=== PATIENT | female | born 1985 | race Caucasian/White ===

== ENCOUNTER 2022-07-02 01:23 | Day surgery (SDC) | payer OTHER, SELFPAY ==
[2022-06-24 16:33] VITALS: BMI 31.8
--- NOTE | 2022-06-24 16:46 | PC.NURSE ---
Report to the Outpatient Waiting Room, entrance under the green pavilion located off [facility], at time _1215 on date 07/02/22. OR Time: _1415_. - You and your visitor will be asked a series of questions to screen for COVID 19 for your protection. - Only one visitor is allowed at this time. - The patient visitor is requested to leave or wait in car when not with patient. - A mask is required within the hospital. Patients may have clear liquids (water, carbonated beverages, clear teas, apple juice) until 3 hours prior to surgery with a maximum of 20 ounces. - No food from midnight until time of surgery - Infants may have breast milk until 4 hours before surgery, infant formula 6 hours prior to surgery. - Children will be allowed to drink immediately following surgery. If applicable, please bring a bottle or sippy cup to assist with drinking. Juice, water, soda, and popsicles are readily available. For infants on formula, please bring formula the day of surgery. Pacifiers are allowed. Take the following medications with a SIP of water the morning of surgery: n/a Medications to discontinue per physician Date to take last dose Please no make-up, nail azeri, hairspray, perfume, deodorant, or body powder the day of surgery. No jewelry (including any body piercings) or valuables the day of surgery, leave them at home. Please take a shower or bath the night before, or the morning of, surgery with an antibacterial soap. Wear comfortable, loose fitting clothing. Children are encouraged to wear pajamas. - Jewelry must be removed prior to entering the operating room. Rings and piercings that are not removed may be cut off. - The hospital will not accept responsibility for valuables. - Please leave all valuables, including medications, at home the day of surgery. If you are going home after surgery, a licensed cdl team truck driver must drive you home. - NO public transportation without another adult. - We recommend that an adult stay with you for 24 hours following discharge. - We also recommend that you do not drive, make important decision, drink alcoholic beverages, or take any drugs that were not prescribed by your health care provider for at least 24 hours after your discharge time. For Pediatric surgeries, we recommend two adults accompany the child home (only one inside the building at this time). Follow any additional instructions given to you from your surgeon. If you or anyone in your household have experienced Covid symptoms in the past week, please notify your surgeon or the nurse liaison at the phone number below for possible testing. Telephone instructions given to Barry Cooley and asked if any additional questions and then verbalized understanding. Patient advised to call surgeon office or pre surgery nurse liaison [phone] if any additional questions.
--- NOTE | 2022-07-02 10:59 | PM.IMHP ---
H&P: HPI History of Present Illness Date/Time: 07/02/22 10:59 37-year-old female presents for evaluation of heavy vaginal bleeding. She was doing well until approximately 3-4 months ago when began have heavy bleeding cramping clots was initiated on control pills which did not help. Ultrasound revealed no significant abnormalities an endometrial lining of 9mm. Ultimately desires ablation but due to insurance needs to have tissue sampling performed prior to ablation being performed. Chief Complaint: Menometrorrhagia PMFSH Past Medical History Medical History Anxiety and depression Hypertension Surgical History Surgical History Delivery by section (~2004) History of (07/26/05) primary c/s Family History Family History Grandparent Diabetes mellitus maternal grandfather Pulmonary embolism paternal grandfather Carcinoma of colon maternal grandfather Father Cerebrovascular accident Father Cerebrovascular accident Grandparent Diabetes mellitus maternal grandfather Pulmonary air embolism paternal grandfather legs and lungs Social History Social History Years smoked: 20 Smoking status: Former smoker Tobacco type: cigarettes Smoking end date: 08/30/21 Alcohol intake: never Substance use: never Substance use type: does not use Living arrangements: with family Additional living arrangements comments: 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 Gender identity (if verbalized by the patient): Female Sexual Orientation (if Verbalized by the Patient): Straight or Heterosexual Spiritual care concerns: No Meds Home Medications and Allergies Home Medications Medication Instructions Recorded Confirmed Type galcanezumab-gnlm 120 mg/mL 120 mg subcut MONTHLY 05/14/22 06/24/22 History subcutaneous pen injector (Emgality Pen) metoprolol tartrate 50 mg tablet 50 mg PO DAILY 05/14/22 06/24/22 History Allergies Allergy/AdvReac Type Severity Reaction Status Date / Time hydrocodone Allergy Mild HIVES Unverified 05/14/22 14:56 Exam Const: General: cooperative, healthy appearing and comfortable Resp: Effort & Inspection: normal respiratory effort Auscultation: clear to auscultation bilaterally Cardio: Rate: regular rate Rhythm: regular rhythm GI: Inspection: normal to inspection and scar Auscultation: normal bowel sounds : External Female Exam: normal external appearance Speculum Exam - Vagina: normal appearance of the vagina Speculum Exam - Cervix: normal appearance of the cervix Bimanual exam- vagina & uterus: enlarged ( 8-10 week size) Bimanual Exam- Adnexa, other: normal adnexae Assessment and Plan Assessment and plan (1) Menometrorrhagia: Code(s): N92.1 - Excessive and frequent menstruation with irregular cycle Status: Acute Assessment and Plan: hysteroscopy with uterine curettings
--- NOTE | 2022-07-02 11:01 | WPDHPUPDATE1 ---
History and Physical Update Update Date/Time: 07/02/22 11:01 History and Physical has been reviewed, including an updated exam of the patient. There are NO changes in the patient's condition. Risks, benefits, and alternatives have been discussed and questions answered. Patient agrees to proceed with procedure.
[2022-07-02 12:12] VITALS: BP 128/85; PULSE 72; RESP 18; TEMP 36.4; O2SAT 100
--- NOTE | 2022-07-02 12:18 | WPDANESEPPF ---
Anes - Initial Pre Proc Eval Procedure: Operation Date: 07/02/22 14:15 Proposed Procedures p Hysteroscopy, Dilation and Curettage - Keven Vela MD Date/Time: 07/02/22 12:18 Surgeon: Keven Vela MD Pre Op Diagnosis: menometrorrhagia Patient Data Age: 37 Gender: F Height: 1.73 m Weight: 95.9 kg Last Vital Signs Temp 97.6 F 07/02/22 12:12 Pulse 72 07/02/22 12:12 Resp 18 07/02/22 12:12 BP 128/85 07/02/22 12:12 Pulse Ox 100 07/02/22 12:12 O2 Del Method Room Air 07/02/22 12:12 Allergies Allergy/AdvReac Type Severity Reaction Status Date / Time hydrocodone Allergy Mild HIVES Unverified 05/14/22 14:56 Home Medications Medication Instructions Recorded Confirmed Type galcanezumab-gnlm 120 mg/mL 120 mg subcut MONTHLY 05/14/22 06/24/22 History subcutaneous pen injector (Emgality Pen) metoprolol tartrate 50 mg tablet 50 mg PO DAILY 05/14/22 06/24/22 History Patient hx anesthesia problems: none Family hx anesthesia problems: none Results Review: All pre-operative results and documents have been reviewed as part of the pre-operative evaluation. [facility] Past Medical History Medical History Anxiety and depression Hypertension Surgical History Surgical History Delivery by section (~2004) History of (07/26/05) primary c/s Family History Family History Grandparent Diabetes mellitus maternal grandfather Pulmonary embolism paternal grandfather Carcinoma of colon maternal grandfather Father Cerebrovascular accident Father Cerebrovascular accident Grandparent Diabetes mellitus maternal grandfather Pulmonary air embolism paternal grandfather legs and lungs Social History Social History Years smoked: 20 Smoking status: Former smoker Tobacco type: cigarettes Smoking end date: 08/30/21 Alcohol intake: never Substance use: never Substance use type: does not use Living arrangements: with family Additional living arrangements comments: 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 Gender identity (if verbalized by the patient): Female Sexual Orientation (if Verbalized by the Patient): Straight or Heterosexual Spiritual care concerns: No Anes - Eval Final PreProcedure Day of Procedure 07/02/22 12:18 Patient weight: obese Heart: regular rate and rhythm Lungs: clear to auscultation Airway: Mallampati scale class II Neurological: alert and oriented Last oral intake: >/= 8 hours ASA classification: II Emergent: no Anesthetic plan: proceed Anesthesia type and monitoring: general GIVS and standard monitoring Results Review: All pre-operative results and documents have been reviewed as part of the pre-operative evaluation. Informed Consent: The patient's anesthetic plan and its attendant risks and benefits were discussed with the patient/family/POA. Questions were solicited and answers provided to the satisfaction of the patient/family/POA.
[2022-07-02] MEDS: ACETAMINOPHEN 500 MG TABLET 1000 MG PO (12:22)
[2022-07-02] MEDS: LACTATED RINGERS 1,000 ML 30 ML IV CONT (12:30)
[2022-07-02 12:50] VITALS: BP 128/85; PULSE 72; RESP 18; TEMP 36.4; O2SAT 100
--- NOTE | 2022-07-02 13:44 | P.OP_ITS ---
Procedure Note - Detailed Date of Procedure 07/02/22 Pre-op Diagnosis menometrorrhagia Post-op Diagnosis Same Procedure Performed Hysteroscopy with uterine curettings Surgeon Keven Vela MD Anesthesia MAC Findings Slightly thickened endometrial cavity, no polyps or fibroids noted. Description of Procedure Patient prepped and draped in usual manner for this procedure. Cervix dilated to allow the hysteroscope to be placed which revealed no significant abn ormalities. Curettings were obtained with tissue sent for pathologic diagnosis. There was no significant bleeding patient was sent to recovery room in stable condition. Estimated Blood Loss 25 Drains No Packing No Pathology Yes Complications No immediate complications Condition Stable Disposition PACU [facility] Billing Surgery - Charge Forward: Surgery Billing
[2022-07-02 13:50] VITALS: BP 111/79; PULSE 68; RESP 12; O2SAT 98
[2022-07-02 14:35] VITALS: BP 129/85; PULSE 66; RESP 16
== END 2022-07-02 14:50 | disposition home or self-care (01) ==
PROVIDERS: Visit Provider Obstetrics & Gynecology
PROC: 0U5B8ZZ Destruction of Endometrium, Via Natural or Artificial Opening Endoscopic (ICD-10-PCS; CPT 58563; principal; 2022-07-02 14:15)
DX: N92.1 Excessive and frequent menstruation with irregular cycle (principal); I10 Essential (primary) hypertension; F41.8 Other specified anxiety disorders; Z87.891 Personal history of nicotine dependence; E66.9 Obesity, unspecified; Z68.32 Body mass index [BMI] 32.0-32.9, adult
CPT/HCPCS: 58558; 88305; A9270; J2250; J2704; J3010; J7120

== ENCOUNTER 2022-07-18 00:31 | Day surgery (SDC) | payer OTHER, SELFPAY ==
[2022-07-14 13:43] VITALS: BMI 31.8
--- NOTE | 2022-07-14 14:13 | PC.NURSE ---
Report to the Outpatient Waiting Room, entrance under the green pavilion located off [facility], at time _1130 on date _07/18/22__. OR Time: _1330 . YOU WILL BE NOTIFIED ON 07/17/22 IF YOUR SURGERY TIME IS ADJUSTED - You and your visitor will be asked to self-screen and do not enter if you have any COVID symptoms. - Only one visitor and NO children visitors are allowed at this time. - The patient visitor is requested to leave or wait in car when not with patient due to restrictions. - A mask is required within the hospital. Patients may have clear liquids (water, carbonated beverages, clear teas, apple juice) until 3 hours prior to surgery with a maximum of 20 ounces. - No food from midnight until time of surgery - Take the following medications with a SIP of water the morning of surgery: ___METOPROLOL (FOR MIGRAINES) Medications to discontinue per physician N/A Date to take last dose Please no make-up, nail persian, hairspray, perfume, deodorant, or body powder the day of surgery. No jewelry (including any body piercings) or valuables the day of surgery, leave them at home. Please take a shower or bath the night before, or the morning of, surgery with an antibacterial soap. Wear comfortable, loose fitting clothing. - Jewelry must be removed prior to entering the operating room. Rings and piercings that are not removed may be cut off. - The hospital will not accept responsibility for valuables. - Please leave all valuables, including medications, at home the day of surgery. If you are going home after surgery, a licensed equipment driver must drive you home. - NO public transportation without another adult. - We recommend that an adult stay with you for 24 hours following discharge. - We also recommend that you do not drive, make important decision, drink alcoholic beverages, or take any drugs that were not prescribed by your health care provider for at least 24 hours after your discharge time. Follow any additional instructions given to you from your surgeon. If you or anyone in your household have experienced Covid symptoms in the past week, please notify your surgeon or the nurse liaison at the phone number below for possible testing. Telephone instructions given to __HOLLIE_and asked if any additional questions and then verbalized understanding. Patient advised to call surgeon office or pre surgery nurse liaison [phone] if any additional questions.
[2022-07-18] VITALS (9 sets, daily range): BP systolic 93–160; BP diastolic 54–88; PULSE 59–84; RESP 10–18; TEMP 36.6–36.7; O2SAT 98–100
--- NOTE | 2022-07-18 09:25 | WPDHPUPDATE1 ---
History and Physical Update Update Date/Time: 07/18/22 09:25 37-year-old female presents for treatment of heavy irregular vaginal bleeding and also permanent sterilization. She was present 2 weeks ago with hysteroscopy D&C which showed normal cavity and no endometrial abnormalities on pathology. There for presents today for definitive therapy of both of the above. we have discussed the permanence failure rate increased risk of ectopic and regret from the salpingectomy and she states good understanding and desires to proceed. Plan today: 1. Hysteroscopy with endometrial ablation. No curettings will need to be obtained today 2. Laparoscopic bilateral salpingectomy History and Physical has been reviewed, including an updated exam of the patient. There are NO changes in the patient's condition. Risks, benefits, and alternatives have been discussed and questions answered. Patient agrees to proceed with procedure.
--- NOTE | 2022-07-18 12:40 | P.PNAN_ITS ---
Anes - Initial Pre Proc Eval Procedure: Operation Date: 07/18/22 13:30 Proposed Procedures p Hysteroscopy, Juanita Endometrial Ablation, Bilateral Laparoscopic Salpingectomy - Keven Vela MD Date/Time: 07/18/22 12:40 Surgeon: Keven Vela MD Pre Op Diagnosis: Menometrorrhagia, Desire Sterilization Patient Data Age: 37 Gender: F Height: 1.73 m Weight: 95 kg Allergies Allergy/AdvReac Type Severity Reaction Status Date / Time hydrocodone Allergy Mild HIVES Verified 07/02/22 12:25 Home Medications Medication Instructions Recorded Confirmed Type galcanezumab-gnlm 120 mg/mL 120 mg subcut MONTHLY 05/14/22 07/14/22 History subcutaneous pen injector (Emgality Pen) metoprolol tartrate 50 mg tablet 50 mg PO DAILY 05/14/22 07/14/22 History ibuprofen 800 mg tablet 800 mg PO TID PRN pain #20 tabs 07/02/22 07/14/22 Rx Patient hx anesthesia problems: none Family hx anesthesia problems: none Results Review: All pre-operative results and documents have been reviewed as part of the pre- operative evaluation. [facility] Past Medical History Medical History (Updated 07/18/22 @ 12:40 by Lamont Ham MD) Anxiety and depression Hypertension Obesity Surgical History Surgical History Delivery by section (~2004) History of (07/26/05) primary c/s Family History Family History Grandparent Diabetes mellitus maternal grandfather Pulmonary embolism paternal grandfather Carcinoma of colon maternal grandfather Father Cerebrovascular accident Father Cerebrovascular accident Grandparent Diabetes mellitus maternal grandfather Pulmonary air embolism paternal grandfather legs and lungs Social History Social History Years smoked: 2 Smoking status: Former smoker Tobacco type: cigarettes Smoking end date: 08/30/21 Alcohol intake: never Substance use: never Substance use type: does not use Living arrangements: with family Additional living arrangements comments: 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 Gender identity (if verbalized by the patient): Female Sexual Orientation (if Verbalized by the Patient): Straight or Heterosexual Spiritual care concerns: No Anes - Eval Final PreProcedure Day of Procedure 07/18/22 12:40 Patient weight: obese Heart: regular rate and rhythm Lungs: clear to auscultation Airway: Mallampati scale class II Neurological: alert and oriented Last oral intake: >/= 8 hours ASA classification: II Emergent: no Anesthesia type and monitoring: general ETT and standard monitoring Results Review: All pre-operative results and documents have been reviewed as part of the pre- operative evaluation. Informed Consent: The patient's anesthetic plan and its attendant risks and benefits were discussed with the patient/family/POA. Questions were solicited and answers provided to the satisfaction of the patient/family/POA.
[2022-07-18] MEDS: ACETAMINOPHEN 500 MG TABLET 1000 MG PO (12:46)
[2022-07-18] MEDS: KETOROLAC 15 MG/ML VIAL (*BKC) IV PUSH (12:46)
[2022-07-18] MEDS: LACTATED RINGERS 1,000 ML 30 ML IV CONT (12:58)
[2022-07-18] MEDS: ceFAZolin 2 GM/D5W 50 ML 2 GM/50 ML BAG IVPB (13:33)
--- NOTE | 2022-07-18 14:21 | P.OP_ITS ---
Procedure Note - Detailed Date of Procedure 07/18/22 Pre-op Diagnosis Menometrorrhagia, Desire Sterilization Post-op Diagnosis Same ( Plus adhesions) Procedure Performed 1. Hysteroscopic endometrial ablation 2. Laparoscopic bilateral salpingectomy 3. Laparoscopic lysis of adhesions Surgeon Keven Vela MD Anesthesia General Findings laparoscopic evaluation revealed no abnormalities other than omental adhesions to the anterior abdominal wall. Description of Procedure Patient prepped in usual manner for this procedure. Cervical instruments placed for uterine mobility and attention was placed to the abdomen. Periumbilical and right and left lower quadrant incisions were made under direct visualization. Upon entry of the camera adhesions were noted to the anterior abdominal wall which were taken down with the harmonic scalp. Once this was do ne mesial salpinx was cauterized and cut bilaterally the tubes were removed without difficulty. There was no bleeding, gas was allowed to escape and incisions were approximated using 4-0 Monocryl. Hysteroscope was then placed with evaluation of the cavity. Endometrial ablation instrument was placed cavity assessment performed and the instrument was activated. At the end of the procedure hysteroscopic exam revealed no abnormalities and good destruction throughout. Patient are procedure well and was sent to recovery room in stable condition. Estimated Blood Loss 10 Drains No Packing No Pathology Yes Complications No immediate complications Condition Stable Disposition PACU [facility] Billing Surgery - Charge Forward: Surgery Billing
[2022-07-18] MEDS: oxyCODONE HCL (*CRX) 5 MG TAB IR PO (15:13)
== END 2022-07-18 16:30 | disposition home or self-care (01) ==
PROVIDERS: Visit Provider Obstetrics & Gynecology
PROC: 0UDB8ZZ Extraction of Endometrium, Via Natural or Artificial Opening Endoscopic (ICD-10-PCS; CPT 58558; principal; 2022-07-18 13:30)
DX: N92.1 Excessive and frequent menstruation with irregular cycle (principal); Z30.2 Encounter for sterilization; I10 Essential (primary) hypertension; F41.8 Other specified anxiety disorders; E66.9 Obesity, unspecified; Z68.31 Body mass index [BMI] 31.0-31.9, adult; Z87.891 Personal history of nicotine dependence
CPT/HCPCS: 58563; 58661; 88302; A9270; J0330; J0690; J1100; J1885; J2704; J2710; J3010; J7120

== ENCOUNTER 2023-03-16 15:02 | Outpatient (CLI) | payer OTHER, SELFPAY ==
--- NOTE | 2023-03-16 15:30 | ECG_ITS ---
Measurements Intervals Anabel Rate: 76 P: 43 NJ: 184 QRS: 22 QRSD: 87 T: 21 QT: 403 QTc: 456 Interpretive Statements SINUS RHYTHM NORMAL ECG NO PREVIOUS ECG AVAILABLE FOR COMPARISON Electronically Signed On 03-17-2023 6:59:57 CDT by Shukri Lucero M.D.
[2023-03-16 15:52] LABS: Hematocrit 36.3 % (37.0-47.0); Mean Corpuscular HGB Conc 33.1 g/dl (32-36); Mean Corpuscular Hemoglobin 29.5 pg (26-34); Mean Corpuscular Volume 89.2 fl (80-100); Mean Platelet Volume 10.5 fl (7.4-10.4); Platelet Count Result 309 k/mm3 (150-375); Red Blood Count 4.07 M/mm3 (4.2-5.4); Red Cell Distribution Width 14.2 % (11.5-14.5); White Blood Count 6.7 K/mm3 (4.5-10.0)
== END 2023-03-16 15:03 | disposition home or self-care (01) ==
LOC: ANHSURGERY 15:07
PROVIDERS: Visit Provider Obstetrics & Gynecology
DX: Z01.818 Encounter for other preprocedural examination (principal); E78.5 Hyperlipidemia, unspecified; N99.85 Post endometrial ablation syndrome
CPT/HCPCS: 36415; 85027; 86850; 86900; 86901; 93005

== ENCOUNTER 2023-03-19 01:37 | Day surgery (SDC) | payer OTHER, SELFPAY ==
[2023-03-11 12:37] VITALS: BMI 32.6
--- NOTE | 2023-03-11 12:41 | PC.NURSE ---
Report to the Outpatient Waiting Room, entrance under the green pavilion located off [facility], at time 6:00 on date 03/19/23. Planned Procedure Time: 7:30. Time changes happen often and if your time is changed the preop area will call you the afternoon before. - You and your visitor will be asked to self-screen and do not enter if you have any COVID symptoms. - A mask is optional within the hospital at this time. Patients may have clear liquids (water, carbonated beverages, clear teas, apple juice) until 3 hours prior to surgery (4:30) with a maximum of 20 ounces. - No food from midnight until time of surgery Take the following medications with a SIP of water the morning of surgery: NONE DO NOT STOP ANY OF YOUR OTHER PRESCRIPTION MEDICATIONS PRIOR TO SURGERY?EXCEPT THE FOLLOWING Medications to discontinue per physician: N/A Date to take last dose: N/A Please no make-up, nail austrian, hairspray, perfume, deodorant, or body powder the day of surgery. No jewelry (including any body piercings) or valuables the day of surgery, leave them at home. Please take a shower or bath the night before, or the morning of, surgery with an antibacterial soap. Wear comfortable, loose fitting clothing. - Jewelry must be removed prior to entering the operating room. Rings and piercings that are not removed may be cut off. - The hospital will not accept responsibility for valuables. - Please leave all valuables, including medications, at home the day of surgery. If you are going home after surgery, a licensed [employer] driver must drive you home. - NO public transportation without another adult if you receive anesthesia. - We recommend that an adult stay with you for 24 hours following discharge. - We also recommend that you do not drive, make important decision, drink alcoholic beverages, or take any drugs that were not prescribed by your health care provider for at least 24 hours after your discharge time. Follow any additional instructions given to you from your surgeon. If you or anyone in your household have experienced Covid symptoms in the past week, please notify your surgeon or the nurse liaison at the phone number below for possible testing. Telephone instructions given to PT Satnam GAGNON and asked if any additional questions and then verbalized understanding. Patient advised to call surgeon office or pre surgery nurse liaison [phone] if any additional questions.
--- NOTE | 2023-03-18 09:07 | WPDANESEPPF ---
Anes - Initial Pre Proc Eval Procedure: Operation Date: 03/19/23 07:30 Proposed Procedures p Robotic Assisted Total Laparoscopic Hysterectomy - Keven Vela MD Date/Time: 03/18/23 09:07 Surgeon: Keven Vela MD Pre Op Diagnosis: post ablation syndrome Patient Data Age: 38 Gender: F Height: 1.73 m Weight: 97.52 kg Allergies Allergy/AdvReac Type Severity Reaction Status Date / Time hydrocodone Allergy Mild Nausea Verified 03/11/23 12:36 Home Medications Medication Instructions Recorded Confirmed Type galcanezumab-gnlm 120 mg/mL 120 mg subcut MONTHLY 05/14/22 03/11/23 History subcutaneous pen injector (Emgality Pen) metoprolol tartrate 50 mg tablet 50 mg PO HS 05/14/22 03/11/23 History atorvastatin 20 mg tablet 20 mg PO HS 03/11/23 03/11/23 History Patient hx anesthesia problems: none Family hx anesthesia problems: none Results Review: All pre-operative results and documents have been reviewed as part of the pre-operative evaluation. [facility] Past Medical History Medical History Anxiety and depression Hyperlipidemia Hypertension Obesity Surgical History Surgical History (Updated 03/18/23 @ 10:37 by Keven Vela MD) Delivery by section (~2004) History of (07/26/05) primary c/s History of endometrial ablation History of hysteroscopy (07/18/22) Hscope endometrial ablation / bilateral Lscope salpingectomy and Lysis of adhesions History of hysteroscopy (07/02/22) Hscope D&C History of tubal ligation Family History Family History Grandparent Diabetes mellitus maternal grandfather Pulmonary embolism paternal grandfather Carcinoma of colon maternal grandfather Father Cerebrovascular accident Father Cerebrovascular accident Grandparent Diabetes mellitus maternal grandfather Pulmonary air embolism paternal grandfather legs and lungs Social History Social History Years smoked: 14 Smoking status: Former smoker Tobacco type: cigarettes Smoking end date: 11/30/21 Alcohol intake: current Alcohol use details: RARE Substance use: never Substance use type: does not use Living arrangements: with family Additional living arrangements comments: Occupation/Education: occupation 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 Gender identity (if verbalized by the patient): Female Sexual Orientation (if Verbalized by the Patient): Straight or Heterosexual Spiritual care concerns: No Anes - Eval Final PreProcedure Day of Procedure 03/18/23 09:07 Patient weight: obese Heart: regular rate and rhythm Lungs: clear to auscultation Airway: Mallampati scale class II Neurological: alert and oriented Last oral intake: >/= 8 hours ASA classification: III Emergent: no Anesthetic plan: proceed Anesthesia type and monitoring: general ETT and standard monitoring Results Review: All pre-operative results and documents have been reviewed as part of the pre-operative evaluation. Informed Consent: The patient's anesthetic plan and its attendant risks and benefits were discussed with the patient/family/POA. Questions were solicited and answers provided to the satisfaction of the patient/family/POA.
--- NOTE | 2023-03-18 10:34 | PM.IMHP ---
H&P: HPI History of Present Illness Date/Time: 03/18/23 10:34 38-year-old female presents with complaints of heavy irregular vaginal bleeding and cramping. She underwent endometrial ablation approximately 6 months ago and this has had no effect on her bleeding activity, other than potentially being worse since that period of time. She has a history of delivery and at her laparoscopic tubal which was also performed with the ablation she was found to have omental adhesions but no other significant abnormalities were appreciated. Chief Complaint: Post endometrial ablation syndrome Review of Systems Review of Systems: All systems reviewed & are unremarkable except as noted in HPI and below PMFSH Past Medical History Medical History Anxiety and depression Hyperlipidemia Hypertension Obesity Surgical History Surgical History (Updated 03/18/23 @ 10:37 by Keven Vela MD) Delivery by section (~2004) History of (07/26/05) primary c/s History of endometrial ablation History of hysteroscopy (07/18/22) Hscope endometrial ablation / bilateral Lscope salpingectomy and Lysis of adhesions History of hysteroscopy (07/02/22) Hscope D&C History of tubal ligation Family History Family History Grandparent Diabetes mellitus maternal grandfather Pulmonary embolism paternal grandfather Carcinoma of colon maternal grandfather Father Cerebrovascular accident Father Cerebrovascular accident Grandparent Diabetes mellitus maternal grandfather Pulmonary air embolism paternal grandfather legs and lungs Social History Social History Years smoked: 14 Smoking status: Former smoker Tobacco type: cigarettes Smoking end date: 11/30/21 Alcohol intake: current Alcohol use details: RARE Substance use: never Substance use type: does not use Living arrangements: with family Additional living arrangements comments: Occupation/Education: occupation 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 Gender identity (if verbalized by the patient): Female Sexual Orientation (if Verbalized by the Patient): Straight or Heterosexual Spiritual care concerns: No Meds Home Medications and Allergies Home Medications Medication Instructions Recorded Confirmed Type galcanezumab-gnlm 120 mg/mL 120 mg subcut MONTHLY 05/14/22 03/11/23 History subcutaneous pen injector (Emgality Pen) metoprolol tartrate 50 mg tablet 50 mg PO HS 05/14/22 03/11/23 History atorvastatin 20 mg tablet 20 mg PO HS 03/11/23 03/11/23 History Allergies Allergy/AdvReac Type Severity Reaction Status Date / Time hydrocodone Allergy Mild Nausea Verified 03/11/23 12:36 Exam Const: General: cooperative and healthy appearing Resp: Effort & Inspection: normal respiratory effort Auscultation: clear to auscultation bilaterally Cardio: Rate: regular rate Rhythm: regular rhythm GI: Inspection: normal to inspection and incision Auscultation: normal bowel sounds : External Female Exam: normal external appearance Speculum Exam - Vagina: normal appearance of the vagina Speculum Exam - Cervix: normal appearance of the cervix Bimanual exam- vagina & uterus: enlarged ( 8-10 week size mobile) Bimanual Exam- Adnexa, other: normal adnexae Assessment and Plan Assessment and plan (1) Menometrorrhagia: Code(s): N92.1 - Excessive and frequent menstruation with irregular cycle Status: Acute (2) History of endometrial ablation: Code(s): Z98.890 - Other specified postprocedural states Status: Acute (3) History of : Onset Date: 07/26/05 Code(s): Z98.891 - History of uterine scar from previous surgery Status: Acute Plan 1. Proceed wit
[2023-03-19] VITALS (12 sets, daily range): BP systolic 103–130; BP diastolic 67–89; PULSE 49–90; RESP 12–18; TEMP 36.3–36.8; O2SAT 95–100
[2023-03-19] MEDS: ACETAMINOPHEN 500 MG TABLET 1000 MG PO ×2 (07:00→19:26)
[2023-03-19] MEDS: LACTATED RINGERS 1,000 ML 30 ML IV CONT (07:00)
[2023-03-19] MEDS: KETOROLAC 15 MG/ML VIAL (*BKC) IV PUSH (07:00)
--- NOTE | 2023-03-19 07:04 | WPDHPUPDATE1 ---
History and Physical Update Update Date/Time: 03/19/23 07:04 History and Physical has been reviewed, including an updated exam of the patient. There are NO changes in the patient's condition. Risks, benefits, and alternatives have been discussed and questions answered. Patient agrees to proceed with procedure.
[2023-03-19] MEDS: ceFAZolin 2 GM/D5W 50 ML 2 GM/50 ML BAG IVPB (07:29)
--- NOTE | 2023-03-19 08:32 | W.PM.PROC2 ---
Procedure Note - Detailed Date of Procedure 03/19/23 Pre-op Diagnosis post ablation syndrome Post-op Diagnosis Same Procedure Performed Robotic assisted total laparoscopic hysterectomy Surgeon Keven Vela MD Anesthesia General Findings Enlarged globular uterus with no specific abnormalities noted. Ovaries bilaterally without abnormality Fallopian tubes surgically absent bilateral Description of Procedure Patient prepped and draped usual manner for this procedure. Abdominal trocar sites were marked and placed under direct visualization. The cervical instruments were placed prior to the abdominal portion procedure. The trocars were attached to the de Mayra system and instruments were placed under direct visualization. Surgeon moved to the console and inspection reveals findings as above. Bilaterally the round ligament cauterized and cut and the bladder flap was developed without difficulty posterior leaf the broad ligament was also incised. Utero-ovarian ligament was cauterized and cut to release the ovary from the uterus. Uterine vessels were then skeletonized cauterized and cut and the anterior colpotomy incision was then made. This was carried circumferentially to release the cervix from the vagina. Uterus was then delivered into the uterus without difficulty. Vaginal cuff closed using V lock suture from the right angle to the midline and left angle midline with good approximation hemostasis noted. Irrigation was undertaken and there was no bleeding. Shara was placed empirically over all the surgical sites. Gas was allowed to escape still there was no bleeding. Trocars removed and incisions were approximated using 4-0 Monocryl prior to the patient be sent to recovery room in stable condition. Estimated Blood Loss 50 Drains No Packing No Pathology Yes Complications No immediate complications Condition Stable Disposition PACU [facility] Billing Surgery - Charge Forward: Surgery Billing
[2023-03-19] MEDS: fentaNYL CITRATE INJ (*CRX) 100 MCG/2 ML VIAL 25 MCG IV PUSH ×3 (09:10→09:16)
--- NOTE | 2023-03-19 10:39 | PC.NURSE ---
This patient, Barry Cooley, was received from PACU via bed on 03/19/23 at 0950. Patient/family oriented to unit policies and routines.
[2023-03-19] MEDS: DEXTROSE 5%/0.45% SOD CHL 1,000 ML 125 ML IV CONT (11:09)
[2023-03-19] MEDS: traMADol HCL (*CRX) 50 MG TABLET PO (11:14)
[2023-03-19] MEDS: KETOROLAC 30 MG/ML VIAL (*BKC) IV PUSH (12:09)
[2023-03-19] MEDS: IBUPROFEN 600 MG TABLET PO (17:56)
[2023-03-19] MEDS: METOPROLOL TARTRATE 50 MG TAB PO (21:06)
[2023-03-19] MEDS: ATORVASTATIN 20 MG TABLET PO (21:06)
--- NOTE | 2023-03-19 22:09 | PC.NURSE ---
Patient states that tylenol helped very little with her headache. States that the pain went from a 7/10 to a 6/10 but states that it is hard to rate because she always has a headache. RN stated that she will call the physician senior litigation paralegal and get something stronger ordered for her headache. Patient states that she does not want RN to call and get a new order because nothing will help anyway. RN verified if patient was sure about not getting any stronger medication and patient confirmed that she didn't want it. RN instructed patient that if headache increases in severity to let her know so she can call physician senior litigation paralegal.
[2023-03-20 04:30] VITALS: BP 122/93; PULSE 78; RESP 16; TEMP 36.4
[2023-03-20] MEDS: IBUPROFEN 600 MG TABLET PO (04:35)
[2023-03-20] MEDS: ACETAMINOPHEN 325 MG TABLET 650 MG (04:35)
[2023-03-20 05:55] LABS: Basophils Percent Auto 0.1 % (0.2-1.2); Eosinophils Percent Auto 0.3 % (0-4.4); Hematocrit 34.4 % (37.0-47.0); Hemoglobin 11.2 g/dL (12.0-15.0); Immature Granulocyte Absolute 0.03 K/mm3 (0.00-0.031); Immature Granulocyte Percent A 0.3 % (0-0.5); Lymphocytes Absolute Auto 1.86 K/mm3 (0.9-3.2); Lymphocytes Percent Auto 17.5 % (18.3-44.2); Mean Corpuscular HGB Conc 32.6 g/dl (32-36); Mean Corpuscular Hemoglobin 28.8 pg (26-34); Mean Corpuscular Volume 88.4 fl (80-100); Mean Platelet Volume 11.4 fl (7.4-10.4); Monocytes Absolute Auto 0.6 K/mm3 (0.1-0.6); Monocytes Percent Auto 5.5 % (2.6-8.5); Neutrophils Absolute Auto 8.1 K/mm3 (1.3-6.7); Neutrophils Percent Auto 76.3 % (45.5-73.1); Platelet Count Result 281 k/mm3 (150-375); Red Blood Count 3.89 M/mm3 (4.2-5.4); Red Cell Distribution Width 14.4 % (11.5-14.5); White Blood Count 10.6 K/mm3 (4.5-10.0)
[2023-03-20 08:45] VITALS: BP 117/70; PULSE 71; RESP 18; TEMP 36.5; O2SAT 97
--- NOTE | 2023-03-20 10:10 | WPDANESPN ---
Anes - Prog Note Post-Op Date/Time: 03/20/23 10:10 Cardiovascular status: normal Respiratory status: normal Airway patency: baseline Mental status: baseline Post-Op hydration status: normal Vital Signs: Last Vital Signs Temp 36.5 C 03/20/23 08:45 Pulse 71 03/20/23 08:45 Resp 18 03/20/23 08:45 BP 117/70 03/20/23 08:45 Pulse Ox 97 03/20/23 08:45 O2 Del Method Room Air 03/19/23 09:41 O2 Flow Rate 1 03/19/23 09:30 Pain Score (VAS): 12/09 I/O: Intake & Output 03/19/23 03/20/23 03/20/23 23:59 07:59 15:59 Intake Total 400 250 Output Total 200 Balance 200 250 Laboratory Tests 03/20/23 04:32 03/20/23 04:32 WBC 10.6 H RBC 3.89 L Hgb 11.2 L Hct 34.4 L MCV 88.4 MCH 28.8 MCHC 32.6 RDW 14.4 Plt Count 281 MPV 11.4 H Immature Gran % (Auto) 0.3 Neut % (Auto) 76.3 H Lymph % (Auto) 17.5 L [place] % (Auto) 5.5 Eos % (Auto) 0.3 Baso % (Auto) 0.1 L Lymph # (Auto) 1.86 [place] # (Auto) 0.6 Eos # (Auto) 0.0 Baso # (Auto) 0.0 Abs Immat Gran (auto) 0.03 Absolute Neuts (auto) 8.1 H Absolute Nucleated RBC 0.0 Nucleated RBC % 0.0 Post-procedural complaints: none Patient Feedback: Patient satisfied with anesthetic care.
== END 2023-03-20 09:47 | disposition home or self-care (01) ==
LOC: ANHSURGERY 06:00 → ANHOB2 03-20 08:10
PROVIDERS: Visit Provider Obstetrics & Gynecology
PROC: (CPT 58570; principal; 2023-03-19 07:30)
DX: N99.85 Post endometrial ablation syndrome (principal); N72 Inflammatory disease of cervix uteri; I10 Essential (primary) hypertension; E78.5 Hyperlipidemia, unspecified; F41.8 Other specified anxiety disorders; E66.9 Obesity, unspecified; Z68.33 Body mass index [BMI] 33.0-33.9, adult; Z87.891 Personal history of nicotine dependence
CPT/HCPCS: 58570; S2900; 36415; 85025; 85027; 86850; 86900; 86901; 88307; 93005; A9270; J0690; J1100; J1885; J2250; J2405; J2704; J2710; J3010; J7030; J7120; Q9968

== ENCOUNTER 2023-04-05 16:46 | Observation (INO) | payer OTHER, SELFPAY ==
[2023-04-05] VITALS (17 sets, daily range): BP systolic 97–136; BP diastolic 50–95; PULSE 75–101; RESP 12–20; TEMP 36.4; O2SAT 91–100
[2023-04-05 17:53] LABS: Basophils Percent Auto 0.3 % (0.2-1.2); Eosinophils Absolute Auto 0.2 K/mm3 (0-0.3); Eosinophils Percent Auto 2.5 % (0-4.4); Hematocrit 34.4 % (37.0-47.0); Hemoglobin 11.3 g/dL (12.0-15.0); Immature Granulocyte Absolute 0.03 K/mm3 (0.00-0.031); Immature Granulocyte Percent A 0.4 % (0-0.5); Lymphocytes Absolute Auto 2.44 K/mm3 (0.9-3.2); Lymphocytes Percent Auto 32.1 % (18.3-44.2); Mean Corpuscular HGB Conc 32.8 g/dl (32-36); Mean Corpuscular Hemoglobin 28.9 pg (26-34); Mean Platelet Volume 10.1 fl (7.4-10.4); Monocytes Absolute Auto 0.6 K/mm3 (0.1-0.6); Neutrophils Absolute Auto 4.3 K/mm3 (1.3-6.7); Neutrophils Percent Auto 56.7 % (45.5-73.1); Platelet Count Result 385 k/mm3 (150-375); Red Blood Count 3.91 M/mm3 (4.2-5.4); Red Cell Distribution Width 13.4 % (11.5-14.5); White Blood Count 7.6 K/mm3 (4.5-10.0)
--- NOTE | 2023-04-05 18:03 | ED.FEMALEGU ---
HPI - Female Genitourinary General Chief complaint: Vaginal Bleeding <URMILA Jung Last Filed: 04/06/23 01:35> Stated complaint: vaginal bleeding <URMILA Jung Last Filed: 04/06/23 01:35> Time Seen by Provider: 04/05/23 17:34 <URMILA Jung Last Filed: 04/06/23 01:35> Source: patient <URMILA Jung Last Filed: 04/06/23 01:35> Mode of arrival: ambulatory <URMILA Jung Last Filed: 04/06/23 01:35> Limitations: no limitations <URMILA Jung Last Filed: 04/06/23 01:35> History of Present Illness HPI Narrative: Patient is a 38-year-old female who presents ED with report of vaginal bleeding. Patient had a hysterectomy performed on 03/[address] Vela. She states she has been doing well since the surgery and had not had any significant pain or bleeding since then. Today, around 1 PM, patient developed heavy vaginal bleeding. She states she has gone through 4 overnight pads in the last 1 hour. She is passing large blood clots. She denies any significant pain or cramping, nausea, vomiting, fevers, dizziness, lightheadedness. Patient denies any recent heavy lifting, strenuous activity, sexual intercourse. <URMILA Jung Last Filed: 04/06/23 01:35> Related Data Home medications: Home Medications Medication Instructions Recorded Confirmed galcanezumab-gnlm 120 mg/mL 120 mg subcut MONTHLY 05/14/22 03/11/23 subcutaneous pen injector (Emgality Pen) metoprolol tartrate 50 mg tablet 50 mg PO HS 05/14/22 03/11/23 atorvastatin 20 mg tablet 20 mg PO HS 03/11/23 03/11/23 <URMILA Jung Last Filed: 04/06/23 01:35> Allergies/Adverse reactions: Allergies Allergy/AdvReac Type Severity Reaction Status Date / Time hydrocodone Allergy Mild Nausea Verified 04/05/23 17:14 <Ave Ferrara PA-C - Last Filed: 04/06/23 01:35> Review of Systems Review of Systems: CONSTITUTIONAL: Denies fever, chills, or sweats. CARDIOVASCULAR: Denies chest pain. RESPIRATORY: Denies dyspnea. GASTROINTESTINAL: Denies abdominal pain, nausea, vomiting, or diarrhea. GENITOURINARY: See HPI. SKIN: Denies rash or itching. MUSCULOSKELETAL: Denies back pain, joint pain, or myalgia. NEUROLOGIC: Denies dizziness, lightheadedness, headache, numbness, or weakness. <Ave Ferrara PA-C - Last Filed: 04/06/23 01:35> All systems reviewed & are unremarkable except as noted in HPI and below <Ave Ferrara PA-C - Last Filed: 04/06/23 01:35> PMFSH Past Medical History Medical History: Medical History (Updated 04/09/23 @ 13:48 by Virginia Herman Quinton) Anxiety and depression Hyperlipidemia Hypertension Obesity Postprocedural hemorrhage (04/05/23) vaginal cuff bleeding after hysterectomy <URMILA Jung Last Filed: 04/06/23 01:35> Surgical History Surgical History: Surgical History (Updated 04/06/23 @ 12:17 by Virginia Herman Quinton) Delivery by section (~2004) History of (07/26/05) primary c/s History of endometrial ablation History of hysteroscopy (07/18/22) Hscope endometrial ablation / bilateral Lscope salpingectomy and Lysis of adhesions History of hysteroscopy (07/02/22) Hscope D&C History of robot-assisted laparoscopic hysterectomy (03/19/23) History of tubal ligation <URMILA Jung Last Filed: 04/06/23 01:35> Family History Family History: Family History Grandparent Diabetes mellitus maternal grandfather Pulmonary embolism paternal grandfather Carcinoma of colon maternal grandfather Father Cerebrovascular accident Father Cerebrovascular accident Grandparent Diabetes mellitus maternal grandfather Pulmonary air embolism paternal grandfather legs and lungs <Ave Ferrara PA-C -
[2023-04-05 18:05] LABS: Prothrombin Time 13.8 Seconds (11.1-14.7)
[2023-04-05 18:06] LABS: Partial Thromboplastin Time 35.1 SECONDS (22.3-36.8)
[2023-04-05 18:07] LABS: Alanine Aminotransferase 35 U/L (6-35); Albumin Level 4.4 g/dL (3.5-5.1); Alkaline Phosphatase 174 U/L (38-126); Anion Gap 9 mmol/L (8-16); Aspartate Amino Transferase 31 U/L (14-36); Bilirubin,Total 0.5 mg/dL (0.2-1.3); Blood Urea Nitrogen 13 mg/dL (7-17); Calcium 9.2 mg/dL (8.4-10.2); Carbon Dioxide 26 mmol/L (22-30); Chloride 104 mmol/L (98-107); Estimated CRCL calculation 112 ml/min; Estimated Glomerular Filt Rate > 60; Glucose 91 mg/dL (65-110); Potassium 3.9 mmol/L (3.4-5.0); Sodium 139 mmol/L (137-145)
[2023-04-05] MEDS: SODIUM CHLORIDE 0.9% IV 1,000 ML 999 ML IV CONT (18:27)
[2023-04-05] MEDS: ONDANSETRON INJ 4 MG/2 ML VIAL IV PUSH ×2 (18:32→23:14)
[2023-04-05] MEDS: HYDROmorphone HCL INJ (*CRX) 1 MG/ML SYR IV PUSH (18:32)
--- NOTE | 2023-04-05 19:00 | PM.IMHP ---
H&P: [facility] History of Present Illness Date/Time: 04/05/23 19:00 Chief Complaint: Vaginal bleeding Narrative: She is a 38 y/o S/P uncomplicated robotic hysterectomy for post ablation syndrome on 03/19. She reports no complications after surgery. She painted to two [place] today and then in the shower she started having heavy vaginal bleeding. She soaked 3 overnight pads in two hours. No pain. In ED initial H/H stable. ER staff evaluated her and vaginal cuff difficult to visualize due to bleeding. I recommended they place a vag packing while I was enroute. On arrival the vag packing inside which was packed except a foot, was completely soiled. Packing removed. There was bleeding coming from the right cuff. I repacked area snuggly with premarin. The packing was soaked after 15 minutes and I recommended vaginal exploration, possible laparoscopy. Discussed the procedure and risk benefits and risk of not performing surgery. She agreed to procedure. Review of Systems Review of Systems: All systems reviewed & are unremarkable except as noted in HPI and below Cardiovascular: Cardiovascular: Reports no additional cardiovascular complaints Respiratory: Respiratory: Reports no additional respiratory complaints Gastrointestinal: Gastrointestinal: Denies abdominal pain Genitourinary: Genitourinary: Reports no additional female genitourinary complaints Musculoskeletal: Musculoskeletal: Reports no additional musculoskeletal complaints Integumentary/Breasts: Skin/Breast: Reports system reviewed and no additional complaints, except as docu Neurologic: Reports system reviewed and no additional complaints, except as documented [facility] Past Medical History Medical History Anxiety and depression Hyperlipidemia Hypertension Obesity Surgical History Surgical History Delivery by section (~2004) History of (07/26/05) primary c/s History of endometrial ablation History of hysteroscopy (07/18/22) Hscope endometrial ablation / bilateral Lscope salpingectomy and Lysis of adhesions History of hysteroscopy (07/02/22) Hscope D&C History of tubal ligation Family History Family History Grandparent Diabetes mellitus maternal grandfather Pulmonary embolism paternal grandfather Carcinoma of colon maternal grandfather Father Cerebrovascular accident Father Cerebrovascular accident Grandparent Diabetes mellitus maternal grandfather Pulmonary air embolism paternal grandfather legs and lungs Social History Social History Years smoked: 14 Smoking status: Former smoker Tobacco type: cigarettes Smoking end date: 11/30/21 Alcohol intake: current Alcohol use details: RARE Substance use: never Substance use type: does not use Living arrangements: with family Additional living arrangements comments: Occupation/Education: occupation 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 Gender identity (if verbalized by the patient): Female Sexual Orientation (if Verbalized by the Patient): Straight or Heterosexual Spiritual care concerns: No Meds Home Medications and Allergies Home Medications Medication Instructions Recorded Confirmed Type galcanezumab-gnlm 120 mg/mL 120 mg subcut MONTHLY 05/14/22 03/11/23 History subcutaneous pen injector (Emgality Pen) metoprolol tartrate 50 mg tablet 50 mg PO HS 05/14/22 03/11/23 History atorvastatin 20 mg tablet 20 mg PO HS 03/11/23 03/11/23 History ibuprofen 600 mg tablet 600 mg PO Q6H PRN Cramping #20 tabs 03/20/23 Rx oxycodone-acetaminophen 5 mg-325 1 tablet PO Q6H PRN pain #20 tabs 03/20/23 Rx mg tablet (Percocet) Allergies Allergy/AdvReac Type Severity Reaction Status Abram
--- NOTE | 2023-04-05 19:15 | PC.NURSE ---
This RN assumed care of patient
--- NOTE | 2023-04-05 20:02 | WPDANESEPPF ---
Anes - Initial Pre Proc Eval Procedure: Operation Date: 04/05/23 20:30 Proposed Procedures p Diagnostic Laparoscopy Pos Lap - Ranjeet Roberts MD s Anterior and Posterior Repair - Ranjeet Roberts MD Date/Time: 04/05/23 20:02 Surgeon: Ranjeet Roberts MD Pre Op Diagnosis: Vaginal Bleeding Pre Op Diagnosis: vaginal bleeding Patient Data Age: 38 Gender: F Height: 1.73 m Weight: 97 kg Last Vital Signs Pulse 78 04/05/23 19:30 Resp 14 04/05/23 19:19 BP 111/82 04/05/23 19:30 Pulse Ox 97 04/05/23 19:30 O2 Del Method Room Air 04/05/23 16:56 Allergies Allergy/AdvReac Type Severity Reaction Status Date / Time hydrocodone Allergy Mild Nausea Verified 04/05/23 17:14 Home Medications Medication Instructions Recorded Confirmed Type galcanezumab-gnlm 120 mg/mL 120 mg subcut MONTHLY 05/14/22 03/11/23 History subcutaneous pen injector (Emgality Pen) metoprolol tartrate 50 mg tablet 50 mg PO HS 05/14/22 03/11/23 History atorvastatin 20 mg tablet 20 mg PO HS 03/11/23 03/11/23 History ibuprofen 600 mg tablet 600 mg PO Q6H PRN Cramping #20 tabs 03/20/23 Rx oxycodone-acetaminophen 5 mg-325 1 tablet PO Q6H PRN pain #20 tabs 03/20/23 Rx mg tablet (Percocet) Laboratory Tests 04/05/23 17:45 WBC 7.6 K/mm3 (4.5-10.0) RBC 3.91 L M/mm3 (4.2-5.4) Hgb 11.3 L g/dL (12.0-15.0) Hct 34.4 L % (37.0-47.0) MCV 88.0 fl (80-100) MCH 28.9 pg (26-34) MCHC 32.8 g/dl (32-36) RDW 13.4 % (11.5-14.5) Plt Count 385 H k/mm3 (150-375) MPV 10.1 fl (7.4-10.4) Immature Gran % (Auto) 0.4 % (0-0.5) Neut % (Auto) 56.7 % (45.5-73.1) Lymph % (Auto) 32.1 % (18.3-44.2) [place] % (Auto) 8.0 % (2.6-8.5) Eos % (Auto) 2.5 % (0-4.4) Baso % (Auto) 0.3 % (0.2-1.2) Lymph # (Auto) 2.44 K/mm3 (0.9-3.2) [place] # (Auto) 0.6 K/mm3 (0.1-0.6) Eos # (Auto) 0.2 K/mm3 (0-0.3) Baso # (Auto) 0.0 K/mm3 (0.0-0.1) Abs Immat Gran (auto) 0.03 K/mm3 (0.00-0.031) Absolute Neuts (auto) 4.3 K/mm3 (1.3-6.7) Absolute Nucleated RBC 0.0 K/mm3 (0.0-0.012) Nucleated RBC % 0.0 % (0.0-0.2) PT 13.8 Seconds (11.1-14.7) INR 1.0 APTT 35.1 SECONDS (22.3-36.8) Sodium 139 mmol/L (137-145) Potassium 3.9 mmol/L (3.4-5.0) Chloride 104 mmol/L (98-107) Carbon Dioxide 26 mmol/L (22-30) Anion Gap 9 mmol/L (8-16) BUN 13 mg/dL (7-17) Creatinine 0.70 mg/dL (0.7-1.0) Estim Creat Clear Calc 112 ml/min Estimated GFR > 60 (59 - ) Glucose 91 mg/dL (65-110) Calcium 9.2 mg/dL (8.4-10.2) Total Bilirubin 0.5 mg/dL (0.2-1.3) AST 31 U/L (14-36) ALT 35 U/L (6-35) Alkaline Phosphatase 174 H U/L (38-126) Total Protein 8.0 g/dL (6.3-8.2) Albumin 4.4 g/dL (3.5-5.1) Blood Type O Positive Antibody Screen Negative Patient hx anesthesia problems: none Family hx anesthesia problems: none Results Review: All pre-operative results and documents have been reviewed as part of the pre-operative evaluation. [facility] Past Medical History Medical History Anxiety and depression Hyperlipidemia Hypertension Obesity Surgical History Surgical History Delivery by section (~2004) History of (07/26/05) primary c/s History of endometrial ablation History of hysteroscopy (07/18/22) Hscope endometrial ablation / bilateral Lscope salpingectomy and Lysis of adhesions History of hysteroscopy (07/02/22) Hscope D&C History of tubal ligation Family History Family History Grandparent Diabetes mellitus maternal grandfather Pulmonary embolism paternal grandfather Carcinoma of colon maternal grandfather Father
--- NOTE | 2023-04-05 20:43 | WPDANESEPPF ---
Anes - Initial Pre Proc Eval Procedure: Operation Date: 04/05/23 20:30 Proposed Procedures p Diagnostic Laparoscopy Pos Lap - Ranjeet Roberts MD s Anterior and Posterior Repair - Ranjeet Roberts MD Date/Time: 04/05/23 20:43 Surgeon: Ranjeet Roberts MD Pre Op Diagnosis: vaginal bleeding Patient Data Age: 38 Gender: F Height: 1.73 m Weight: 97 kg Last Vital Signs Pulse 85 04/05/23 20:29 Resp 16 04/05/23 20:29 BP 106/87 04/05/23 20:29 Pulse Ox 100 04/05/23 20:29 O2 Del Method Room Air 04/05/23 16:56 Allergies Allergy/AdvReac Type Severity Reaction Status Date / Time hydrocodone Allergy Mild Nausea Verified 04/05/23 17:14 Home Medications Medication Instructions Recorded Confirmed Type galcanezumab-gnlm 120 mg/mL 120 mg subcut MONTHLY 05/14/22 03/11/23 History subcutaneous pen injector (Emgality Pen) metoprolol tartrate 50 mg tablet 50 mg PO HS 05/14/22 03/11/23 History atorvastatin 20 mg tablet 20 mg PO HS 03/11/23 03/11/23 History ibuprofen 600 mg tablet 600 mg PO Q6H PRN Cramping #20 tabs 03/20/23 Rx oxycodone-acetaminophen 5 mg-325 1 tablet PO Q6H PRN pain #20 tabs 03/20/23 Rx mg tablet (Percocet) Laboratory Tests 04/05/23 17:45 WBC 7.6 K/mm3 (4.5-10.0) RBC 3.91 L M/mm3 (4.2-5.4) Hgb 11.3 L g/dL (12.0-15.0) Hct 34.4 L % (37.0-47.0) MCV 88.0 fl (80-100) MCH 28.9 pg (26-34) MCHC 32.8 g/dl (32-36) RDW 13.4 % (11.5-14.5) Plt Count 385 H k/mm3 (150-375) MPV 10.1 fl (7.4-10.4) Immature Gran % (Auto) 0.4 % (0-0.5) Neut % (Auto) 56.7 % (45.5-73.1) Lymph % (Auto) 32.1 % (18.3-44.2) [place] % (Auto) 8.0 % (2.6-8.5) Eos % (Auto) 2.5 % (0-4.4) Baso % (Auto) 0.3 % (0.2-1.2) Lymph # (Auto) 2.44 K/mm3 (0.9-3.2) [place] # (Auto) 0.6 K/mm3 (0.1-0.6) Eos # (Auto) 0.2 K/mm3 (0-0.3) Baso # (Auto) 0.0 K/mm3 (0.0-0.1) Abs Immat Gran (auto) 0.03 K/mm3 (0.00-0.031) Absolute Neuts (auto) 4.3 K/mm3 (1.3-6.7) Absolute Nucleated RBC 0.0 K/mm3 (0.0-0.012) Nucleated RBC % 0.0 % (0.0-0.2) PT 13.8 Seconds (11.1-14.7) INR 1.0 APTT 35.1 SECONDS (22.3-36.8) Sodium 139 mmol/L (137-145) Potassium 3.9 mmol/L (3.4-5.0) Chloride 104 mmol/L (98-107) Carbon Dioxide 26 mmol/L (22-30) Anion Gap 9 mmol/L (8-16) BUN 13 mg/dL (7-17) Creatinine 0.70 mg/dL (0.7-1.0) Estim Creat Clear Calc 112 ml/min Estimated GFR > 60 (59 - ) Glucose 91 mg/dL (65-110) Calcium 9.2 mg/dL (8.4-10.2) Total Bilirubin 0.5 mg/dL (0.2-1.3) AST 31 U/L (14-36) ALT 35 U/L (6-35) Alkaline Phosphatase 174 H U/L (38-126) Total Protein 8.0 g/dL (6.3-8.2) Albumin 4.4 g/dL (3.5-5.1) Blood Type O Positive Antibody Screen Negative Patient hx anesthesia problems: none Family hx anesthesia problems: none Results Review: All pre-operative results and documents have been reviewed as part of the pre-operative evaluation. [facility] Past Medical History Medical History Anxiety and depression Hyperlipidemia Hypertension Obesity Surgical History Surgical History Delivery by section (~2004) History of (07/26/05) primary c/s History of endometrial ablation History of hysteroscopy (07/18/22) Hscope endometrial ablation / bilateral Lscope salpingectomy and Lysis of adhesions History of hysteroscopy (07/02/22) Hscope D&C History of tubal ligation Family History Family History Grandparent Diabetes mellitus maternal grandfather Pulmonary embolism paternal grandfather Carcinoma of colon maternal grandfather Father Cerebrovascular accident Father C
[2023-04-05] MEDS: ceFAZolin 2 GM/D5W 50 ML 2 GM/50 ML BAG IVPB (21:06)
--- NOTE | 2023-04-05 21:50 | W.PM.PROC2 ---
Procedure Note - Detailed Date of Procedure 04/05/23 Pre-op Diagnosis vaginal bleeding Post-op Diagnosis Same (Vaginal cuff bleeding) Procedure Performed Vaginal exploration Surgeon Ranjeet Roberts MD Anesthesia MAC Indications Vaginal bleeding Findings Area of oozing at the right cuff, small ooze at the left cuff. Description of Procedure After Informed consent was obtained patient was taken to the operating room and adequate IV sedation was administered. She was placed in high lithotomy position and prepped and draped in sterile fashion. At the time of prepping she did have a large clot that came out after the packing was removed the packing was completely saturated. She was placed in Trendelenburg position. Weight and then graves speculum was used to visualize the cuff. Allis clamp was placed the vaginal fornix right and left. At this time there was noted to be small blood from the left cuff. 0 vicryl was used and hemostasis was obtained with several locked stitches. There was noted to be more oozing coming from the superior edge of the right side of cuff. Cautery was used for hemostasis at a pumper. The edge of the right cuff was oozing and several figure of eight stitches were used. Hemostasis noted. Hemoderm placed and vaginal packing with estrogen cream. She was taken out of trendelenburg position. Sponge count correct. Patient tolerated procedure well. Estimated Blood Loss 50 Drains No Packing Yes Pathology None sent Complications No immediate complications Condition Stable Disposition PACU [facility] Billing Surgery - Charge Forward: Surgery Billing
[2023-04-05] MEDS: LACTATED RINGERS 1,000 ML 30 ML IV CONT ×2 (21:51)
--- NOTE | 2023-04-05 22:17 | SUR.PHASEI ---
pt came from or on room air. pt has had no pain and no nausea. vitals are stable and report given to rn on ob unit.
[2023-04-05] MEDS: DEXTROSE 5%/0.45% SOD CHL 1,000 ML 125 ML IV CONT (23:16)
[2023-04-05] MEDS: METOPROLOL TARTRATE 50 MG TAB PO (23:36)
[2023-04-05] MEDS: ATORVASTATIN 20 MG TABLET PO (23:36)
[2023-04-06] MEDS: IBUPROFEN 600 MG TABLET PO ×2 (04:21→11:29)
[2023-04-06 04:29] VITALS: BP 107/88; PULSE 88; RESP 18; TEMP 36.6; O2SAT 99
[2023-04-06 04:32] LABS: Basophils Percent Auto 0.1 % (0.2-1.2); Hematocrit 29.8 % (37.0-47.0); Hemoglobin 9.7 g/dL (12.0-15.0); Immature Granulocyte Absolute 0.03 K/mm3 (0.00-0.031); Immature Granulocyte Percent A 0.4 % (0-0.5); Lymphocytes Absolute Auto 1.03 K/mm3 (0.9-3.2); Lymphocytes Percent Auto 12.5 % (18.3-44.2); Mean Corpuscular HGB Conc 32.6 g/dl (32-36); Mean Corpuscular Hemoglobin 28.6 pg (26-34); Mean Corpuscular Volume 87.9 fl (80-100); Mean Platelet Volume 10.6 fl (7.4-10.4); Monocytes Absolute Auto 0.1 K/mm3 (0.1-0.6); Monocytes Percent Auto 1.6 % (2.6-8.5); Neutrophils Percent Auto 85.4 % (45.5-73.1); Platelet Count Result 342 k/mm3 (150-375); Red Blood Count 3.39 M/mm3 (4.2-5.4); Red Cell Distribution Width 13.4 % (11.5-14.5); White Blood Count 8.2 K/mm3 (4.5-10.0)
[2023-04-06 07:45] VITALS: PULSE 88; RESP 18; O2SAT 99
[2023-04-06 08:30] VITALS: BP 106/64; PULSE 74; RESP 16; TEMP 36.6; O2SAT 95
[2023-04-06] MEDS: RIZATRIPTAN BENZOATE 10 MG TABLET PO ×2 (09:31→09:51)
--- NOTE | 2023-04-06 09:47 | PM.GYNPNOP ---
CAR FERRY CAPTAIN - A/P Assessment and plan (1) Postprocedural hemorrhage: Qualifiers: Procedure type: genitourinary Surgical complication system/body Area: genitourinary Qualified Code(s): N99.820 - Postprocedural hemorrhage of a genitourinary system organ or structure following a genitourinary system procedure Status: Acute Postoperative Procedures: Procedures Operation Date: 04/05/23 20:30 Actual Procedure Side Surgeon p Vaginal Exploration with Vaginal Cuff Repair with Packing Not Applicable Ranjeet Roberts MD Postoperative day: 1 Postoperative status: doing well Postoperative plan: routine post-op care, voiding trials and discharge (in PM is vaginal bleeding stable and able to void) Time Spent With Patient Time: Total time spent is greater than 50% in coordination of care (as documented) at patient's floor/unit and/or counseling patient: Time with patient: less than 15 minutes CAR FERRY CAPTAIN- PN:Subj Post-Op Subjective Date/time seen: 04/06/23 09:47 Interval history: POD#1 Barry reports doing ok this morning; has a migraine. She still has the vaginal packing and catheter in. No N/V, CP, SOB. + flatus. Tolerating regular diet. No symptoms of anemia. Review of Systems Review of Systems: All systems reviewed & are unremarkable except as noted in HPI and below (HPI) Exam Const: General: cooperative, healthy appearing, comfortable and no acute distress Resp: Effort & Inspection: normal respiratory effort Auscultation: clear to auscultation bilaterally Cardio: Rate: regular rate GI: Inspection: normal to inspection GI Palp: No abdominal tenderness and Yes Soft to palpation Auscultation: normal bowel sounds : Other: vaginal packing removed; minimal blood on packing; no bleeding noted pinto removed CAR FERRY CAPTAIN - PN: Obj Data Vital Signs Vital Signs: Vital Signs - 24 hr 04/05/23 16:56 04/05/23 18:00 04/05/23 17:52 Temperature Pulse Rate 87 75 77 Respiratory Rate 18 18 16 Blood Pressure 126/95 H 125/88 125/88 Pulse Oximetry 97 100 100 Oxygen Delivery Room Air 04/05/23 18:01 04/05/23 18:16 04/05/23 18:27 Temperature Pulse Rate 82 91 91 Respiratory Rate 19 19 20 Blood Pressure 121/94 H Pulse Oximetry 99 91 99 Oxygen Delivery 04/05/23 18:55 04/05/23 19:00 04/05/23 19:19 Temperature Pulse Rate 75 77 77 Respiratory Rate 18 14 14 Blood Pressure 111/75 Pulse Oximetry 100 96 98 Oxygen Delivery 04/05/23 19:30 04/05/23 20:29 04/05/23 21:51 Temperature 97.6 F Pulse Rate 78 85 101 H Respiratory Rate 16 16 Blood Pressure 111/82 106/87 136/76 Pulse Oximetry 97 100 97 Oxygen Delivery Room Air 04/05/23 22:00 04/05/23 22:15 04/05/23 22:22 Temperature Pulse Rate 101 H 93 86 Respiratory Rate 14 14 12 Blood Pressure 115/71 105/68 115/73 Pulse Oximetry 99 97 96 Oxygen Delivery Room Air Room Air Room Air 04/05/23 23:29 04/05/23 23:29 04/05/23 23:36 Temperature 97.5 F L Pulse Rate 88 88 88 Respiratory Rate 18 18 Blood Pressure 97/50 L Pulse Oximetry 99 99 Oxygen Delivery Room Air 04/06/23 04:29 04/06/23 04:29 04/06/23 07:45 Temperature 97.9 F Pulse Rate 88 88 88 Respiratory Rate 18 18 18 Blood Pressure 107/88 Pulse Oximetry 99 99 99 Oxygen Delivery Room Air Room Air 04/06/23 08:30 Temperature 98 F Pulse Rate 74 Respiratory Rate 16 Blood Pressure 106/64 Pulse Oximetry 95 Oxygen Delivery Intake/Output Intake/Output: Intake & Output 04/03/23 04/04/23 04/05/23 04/06/23 23:59 23:59 23:59 23:59 Intake Total 150 200 Output Total 750 Balance 150 -550 Meds/Results Medications: Active Medications Generic Name Dose Route Start Last Admin Trade Name Freq PRN Reason Stop Dose Admin Acetaminophen/Codeine Phosphate 1 tab 04/05/23 22:07 Acetaminophen/Codeine (*Crx) 300/30 Mg Tablet PO Q4H PRN Pain Rated 4-6 Atorvastatin Calcium 20 mg 04/05/23 23:30 04/05/23 23:36 Atorvastatin 20
[2023-04-06] MEDS: ACETAMINOPHEN/CODEINE (*CRX) 300/30 MG TABLET 1 TAB PO (09:52)
--- NOTE | 2023-04-06 10:56 | P.PNAN_ITS ---
Anes - Prog Note Post-Op Date/Time: 04/06/23 10:56 Vital Signs: Last Vital Signs Temp 36.6 C 04/06/23 08:30 Pulse 74 04/06/23 08:30 Resp 16 04/06/23 08:30 BP 106/64 04/06/23 08:30 Pulse Ox 95 04/06/23 08:30 O2 Del Method Room Air 04/06/23 07:45 Pain Score (VAS): 0 I/O: Intake & Output 04/05/23 04/06/23 04/06/23 23:59 07:59 15:59 Intake Total 150 200 Output Total 650 100 Balance 150 -450 -100 Laboratory Tests 04/06/23 04:10 04/05/23 17:45 04/05/23 04/06/23 17:45 04:10 WBC 7.6 8.2 RBC 3.91 L 3.39 L Hgb 11.3 L 9.7 L Hct 34.4 L 29.8 L MCV 88.0 87.9 MCH 28.9 28.6 MCHC 32.8 32.6 RDW 13.4 13.4 Plt Count 385 H 342 MPV 10.1 10.6 H Immature Gran % (Auto) 0.4 0.4 Neut % (Auto) 56.7 85.4 H Lymph % (Auto) 32.1 12.5 L [place] % (Auto) 8.0 1.6 L Eos % (Auto) 2.5 0.0 Baso % (Auto) 0.3 0.1 L Lymph # (Auto) 2.44 1.03 [place] # (Auto) 0.6 0.1 Eos # (Auto) 0.2 0.0 Baso # (Auto) 0.0 0.0 Abs Immat Gran (auto) 0.03 0.03 Absolute Neuts (auto) 4.3 7.0 H Absolute Nucleated RBC 0.0 0.0 Nucleated RBC % 0.0 0.0 PT 13.8 INR 1.0 APTT 35.1 Sodium 139 Potassium 3.9 Chloride 104 Carbon Dioxide 26 Anion Gap 9 BUN 13 Creatinine 0.70 Estim Creat Clear Calc 112 Estimated GFR > 60 Glucose 91 Calcium 9.2 Total Bilirubin 0.5 AST 31 ALT 35 Alkaline Phosphatase 174 H Total Protein 8.0 Albumin 4.4 Blood Type O Positive Antibody Screen Negative Patient Feedback: Patient satisfied with anesthetic care.
--- NOTE | 2023-04-28 14:44 | PM.DS ---
DS: Admitting Diagnosis Discharge Date 04/06/23 Admitting Diagnosis vaginal bleeding s/p RA-TLH DS: Discharge Diagnosis Discharge Diagnosis Plan post-procedure vaginal bleeding DS: Summary Hospital Course Hospital Course: Barry underwent RA-TLH with Dr. Vela on 03/19/23 and represented on 04/05/23 with heavy vaginal bleeding. She was taken to the OR where additional stitches were placed in the cuff. She was kept overnight with vaginal packing and catheter. After removal (the next morning); no further vaginal bleeding was noted. She voided, tolerated regular diet, ambulated, and was discharged home in a stable condition. Status at Discharge Functional status at discharge: independent ambulation Overall status at discharge: patient is back to baseline Time Spent with Patient Time attestation: Total time spent providing and/or coordinating discharge services: Time spent: Less than 30 minutes Exam Const: General: cooperative, comfortable, no acute distress and obese Orientation/consciousness: patient oriented x3 Resp: Effort & Inspection: normal respiratory effort Auscultation: clear to auscultation bilaterally Cardio: Rate: regular rate GI: Inspection: normal to inspection GI Palp: No abdominal tenderness and Yes Soft to palpation Auscultation: normal bowel sounds : Other: vaginal packing removed on day of discharge and no vaginal bleeding was noted Skin: General skin exam: normal color Neuro: General: patient oriented x3 Extrem: General: normal to inspection Psych: Appearance: grossly normal Affect: normal affect Attitude: cooperative Discharge Plan Discharge Attending physician on discharge: La Miguel Consulting providers: Dutch Tavarez; Juan Vela; Clarisse Lewis; Terrance Robbins Discharging Clinician: La Miguel Anticipated Discharge Date/Time: 04/06/23 16:51 Patient Disposition: Home, Self-Care Activity: may shower, no straining and pelvic rest Diet: as tolerated Patient Instructions: Antibiotic Form, Hysterectomy (DC) Stand Alone Forms: General Discharge Information Follow-up/Referrals: Keven Vela MD [Physician] - PHYSICIAN,SURVEYING TEACHER [Primary Care Provider] - 1 Week Discharge Medications: Continued metoprolol tartrate 50 mg tablet 50 mg PO HS Patient Comments: takes for migraines Emgality Pen 120 mg/mL pen injector 120 mg subcut MONTHLY Patient Comments: 1ST OF THE MONTH atorvastatin 20 mg tablet 20 mg PO HS Discontinued oxycodone-acetaminophen [Percocet] 5-325 mg tablet 1 tablet PO Q6H PRN (Reason: pain) Qty: 20 0RF Date of admission: 04/05/23 22:08 Primary Care Provider: PHYSICIAN,SURVEYING TEACHER Admitting Provider: Ranjeet Roberts Attending physician on admission: La Miguel Condition: Serious
== END 2023-04-06 13:18 | disposition home or self-care (01) ==
LOC: ANHED 19:24 → ANHSURGERY 19:56 → ANHOB2 04-06 03:03
PROVIDERS: Admitting Provider Obstetrics & Gynecology; Emergency Provider Physician Assistant; Visit Provider Obstetrics & Gynecology
PROC: (CPT 49320; principal; 2023-04-05 20:30)
DX: N99.820 Postprocedural hemorrhage of a genitourinary system organ or structure following a genitourinary system procedure (principal); G89.18 Other acute postprocedural pain; F41.9 Anxiety disorder, unspecified; F32.A Depression, unspecified; I10 Essential (primary) hypertension; E66.9 Obesity, unspecified; Z68.32 Body mass index [BMI] 32.0-32.9, adult; Z90.710 Acquired absence of both cervix and uterus; F10.90 Alcohol use, unspecified, uncomplicated; Z79.1 Long term (current) use of non-steroidal anti-inflammatories (NSAID); Z87.891 Personal history of nicotine dependence; Z79.891 Long term (current) use of opiate analgesic; Z79.899 Other long term (current) drug therapy
CPT/HCPCS: 58999; 36415; 80053; 85025; 85610; 85730; 86850; 86900; 86901; 96374; 96375; 99285; A9270; G0378; J0690; J1100; J1170; J1885; J2250; J2405; J2704; J3010; J7030; J7120

== ENCOUNTER 2024-06-28 15:44 | Outpatient (CLI) | payer BC, SELFPAY ==
[2024-06-28 18:45] LABS: Hematocrit 37.6 % (37.0-47.0); Hemoglobin 12.3 g/dL (12.0-15.0); Mean Corpuscular HGB Conc 32.7 g/dl (32-36); Mean Corpuscular Hemoglobin 30.4 pg (26-34); Mean Corpuscular Volume 92.8 fl (80-100); Mean Platelet Volume 11.2 fl (7.4-10.4); Platelet Count Result 302 k/mm3 (150-375); Red Blood Count 4.05 M/mm3 (4.2-5.4); Red Cell Distribution Width 14.3 % (11.5-14.5); White Blood Count 6.2 K/mm3 (4.5-10.0)
[2024-06-28 18:59] LABS: Alanine Aminotransferase 25 U/L (6-35); Albumin Level 4.4 g/dL (3.5-5.1); Alkaline Phosphatase 123 U/L (38-126); Anion Gap 9 mmol/L (4-12); Aspartate Amino Transferase 46 U/L (14-36); Bilirubin,Total 0.4 mg/dL (0.2-1.3); Blood Urea Nitrogen 15 mg/dL (7-17); Calcium 9.4 mg/dL (8.4-10.2); Carbon Dioxide 24 mmol/L (22-30); Chloride 103 mmol/L (98-107); Cholesterol 239 mg/dL (0-200); Estimated Glomerular Filt Rate > 60; Glucose 90 mg/dL (65-110); HDL Direct 44 mg/dL; Sodium 136 mmol/L (137-145); Triglycerides 187 mg/dL (<150)
[2024-06-28 19:10] LABS: LDL Cholesterol Direct 154 mg/dL
[2024-06-28 19:21] LABS: Thyroid Stimulating Hormone 0.842 uIU/mL (0.465-4.680)
== END 2024-06-28 15:45 | disposition home or self-care (01) ==
LOC: ANHBWCLAB 15:45
PROVIDERS: PCP Nurse Practitioner Adult Health; Visit Provider Nurse Practitioner Adult Health
DX: Z13.9 Encounter for screening, unspecified (principal)
CPT/HCPCS: 36415; 80053; 80061; 84443; 85027